=== PATIENT | female | born 1980 ===

== ENCOUNTER 2022-07-29 08:32 | Day surgery (SDC) | payer OTHER ==
[~2022-07-29] VITALS: Ht 180.3 cm; Wt 140.2 kg
[~2022-07-29 08:32] MED LIST: CARVEDILOL6.25 MG; COZAAR100 MG PO; LIPITOR40 MG PO; [UNRECOGNIZED DRUG - OTHER] PO
== END 2022-07-29 19:55 | disposition home or self-care (01) ==
LOC: CIR.AMB 08:32
PROVIDERS: ATTEND Student in an Organized Health Care Education/Training Program
DX: C54.1 Malignant neoplasm of endometrium (principal); Z20.822 Contact with and (suspected) exposure to COVID-19; Z88.6 Allergy status to analgesic agent; I10 Essential (primary) hypertension; E78.5 Hyperlipidemia, unspecified; Z86.16 Personal history of COVID-19; E66.01 Morbid (severe) obesity due to excess calories

== ENCOUNTER 2022-09-13 11:13 | Inpatient (IN) | payer OTHER ==
[~2022-09-13] VITALS: Ht 180.3 cm; Wt 140.2 kg
[2022-09-13] MEDS ORDERED: LASIX20 MG PO (11:58)
== END 2022-09-18 12:22 | disposition home or self-care (01) | DRG 741 ==
LOC: O/R 09-15 06:10 → OB/GYN 09-15 06:10 → SURG 09-15 09:45 → OB/GYN 09-15 11:39
PROVIDERS: ADMIT Specialist; ATTEND Specialist
PROC: 0UT70ZZ Resection of Bilateral Fallopian Tubes, Open Approach (ICD-10-PCS; 2022-09-15)
PROC: 0UT20ZZ Resection of Bilateral Ovaries, Open Approach (ICD-10-PCS; 2022-09-15)
PROC: 07BC0ZZ Excision of Pelvis Lymphatic, Open Approach (ICD-10-PCS; 2022-09-15)
PROC: 0DBU0ZZ Excision of Omentum, Open Approach (ICD-10-PCS; 2022-09-15)
PROC: 3E1M38Z Irrigation of Peritoneal Cavity using Irrigating Substance, Percutaneous Approach (ICD-10-PCS; 2022-09-15)
PROC: 0UT90ZZ Resection of Uterus, Open Approach (ICD-10-PCS; principal; 2022-09-15 10:15)
DX: C54.1 Malignant neoplasm of endometrium (principal); N72 Inflammatory disease of cervix uteri; Z20.822 Contact with and (suspected) exposure to COVID-19; N83.01 Follicular cyst of right ovary